=== PATIENT | female | born 1960 | race African-American/Black ===

== ENCOUNTER 2020-04-18 17:47 | Inpatient (IN) | payer MEDICARE, OTHER ==
[~2020-04-18] VITALS: Ht 162.6 cm; Wt 53.1 kg
--- NOTE | 2020-04-18 18:00 | NUR ---
[facility] for L hip/LLE pain. xray taken shows L hip fx. Patient a/ox4, breathing even and unlabored, LLE shows shortening and external rotation. Kept comfortable. Changed into a gown.
[2020-04-18 18:23] LABS: BASOPHILS # (AUTO) 0.1 /CMM (0.0-0.2); BASOPHILS % (AUTO) 0.7 % (0.0-2.0); HEMATOCRIT 33 % (33-45); HEMOGLOBIN 10.5 g/dL (11.5-14.8); LYMPHOCYTES % (AUTO) 35.7 % (20.0-44.0); MEAN CORPUSCULAR HGB CONC 32 g/dl (31.0-36.0); MEAN CORPUSCULAR VOLUME 95 fL (82-100); MONOCYTES # (AUTO) 0.9 /CMM (0.1-1.30); MONOCYTES % (AUTO) 10.8 % (2.0-12.0); NEUTROPHILS # (AUTO) 4.4 /CMM (1.8-8.9); NEUTROPHILS % (AUTO) 51.8 % (43.0-81.0); PLATELET COUNT (AUTO) 492 /CMM (150-450); RED BLOOD CELL COUNT(AUTO) 3.47 MIL/uL (4.0-5.2); WHITE BLOOD COUNT (AUTO) 8.4 K/uL (4.3-11.0)
--- NOTE | 2020-04-18 18:35 | NUR ---
ADMISSION PACKET TURNED IN. MD TO MD IN PROGRESS.
[2020-04-18 18:38] LABS: CALCIUM, SERUM 8.8 mg/dL (8.5-10.1); CREATININE 0.8 mg/dL (0.6-1.3); POTASSIUM 3.6 mmol/L (3.5-5.1)
[2020-04-18 18:43] LABS: ALBUMIN 2.4 g/dL (3.4-5.0); BILIRUBIN,DIRECT 0.1 mg/dL (0.0-0.2); BILIRUBIN,TOTAL 0.1 mg/dL (0.2-1.0); TOTAL PROTEIN, SERUM 7.8 g/dL (6.4-8.2)
[2020-04-18] MEDS ORDERED: MAGNESIUM HYDROXIDE 30 ML UDC PO PRN (19:00)
[2020-04-18] MEDS ORDERED: ONDANSETRON HCL/PF 4 MG/2 ML VIAL IVP PRN (19:00)
[2020-04-18] MEDS ORDERED: MAG HYDROX/AL HYDROX/SIMETH 30 ML UDC PO PRN (19:00)
[2020-04-18] MEDS ORDERED: ACETAMINOPHEN 325 MG TABLET PO PRN (19:00)
[2020-04-18] MEDS ORDERED: HYDROCODONE/APAP 5/325MG TABLET PO PRN (19:00)
[2020-04-18] MEDS ORDERED: Z GUARD REMEDY 2 OZ OINT TP PRN (19:00)
--- NOTE | 2020-04-18 19:06 | NUR ---
CALLED DR. DIAL [facility]. WAITING FOR CALLBACK.
--- NOTE | 2020-04-18 19:07 | NUR ---
COVID SWAB SENT TO LAB.
--- NOTE | 2020-04-18 19:13 | NUR ---
CALLED FOR COVID SWAB
--- NOTE | 2020-04-18 19:21 | NUR ---
CALLED [facility] AGAIN. WAITING FOR CALL BACK.
[2020-04-18] MEDS ORDERED: MORPHINE SULFATE INJ 2 MG/ML DISP.SYRIN IV ONE (19:30)
--- NOTE | 2020-04-18 19:30 | NUR ---
DR. STEVENS SPEAKING WITH DR. DIAL
[2020-04-18] MEDS ORDERED: MORPHINE SULFATE INJ 2 MG/ML DISP.SYRIN ONE (19:53)
--- NOTE | 2020-04-18 20:57 | NUR ---
[facility] NO [facility]ER. WILL FOLLOW UP
--- NOTE | 2020-04-18 22:46 | NUR ---
BED ASSIGNMENT 312-2
--- NOTE | 2020-04-18 23:00 | NUR ---
REPORT GIVEN TO KELVIN BATRES FOR DAV.
--- NOTE | 2020-04-18 23:51 | NUR ---
PATIENT TAKEN UP TO ASSIGN ROOM FOR DAV.
--- NOTE | 2020-04-18 23:55 | NUR ---
RN NOTES PATIENT RECIEVED
--- NOTE | 2020-04-19 00:39 | NUR ---
RN OPENING NOTES PT RECEIVED BEDSIDE. PT CALM, COOPERATIVE. ALERT AND ORIENTED X4. SPEAKS BURUNDIAN. PT ON ROOM AIR. TOLERATING WELL. NO COMPLAINTS. NO PAIN, NO SIGNS OF DISTRESS. VITAL SIGNS: 114/84, PULSE 75, RESP. 18, SPO2 98%. R HAND #20. INTACT, PATENT, FLUSHING WELL. NO OCCLUSIONS. NO INFILTRATION. WENT OVER BELONGING CHECKLIST. PT STATED HAVE NOT RECEIVED FLU/ PNEUMOCOCCAL VACCINE. PT STATE INTERESTED TO RECEIVE BEFORE DISCHARGE. PT NOTIFIED OF NPO STATUS BY MIDNIGHT ORDERED BY DR. DIAL. WILL CONTINUE TO MONITOR.
[2020-04-19 01:31] VITALS: BP 109/83
--- NOTE | 2020-04-19 04:29 | NUR ---
RN NOTE MORPHINE PER OKAY TO GIVE MORPHINE IV 2MG. ADMIN @0425. WILL REASSESS.
[2020-04-19] MEDS ORDERED: MORPHINE SULFATE INJ 2 MG/ML DISP.SYRIN IV PRN (04:30)
[2020-04-19 06:20] LABS: BASOPHILS % (AUTO) 0.4 % (0.0-2.0); EOSINOPHILS % (AUTO) 1.9 % (0.0-6.0); HEMATOCRIT 30 % (33-45); HEMOGLOBIN 9.8 g/dL (11.5-14.8); LYMPHOCYTES # (AUTO) 2.6 /CMM (0.8-4.8); LYMPHOCYTES % (AUTO) 39.8 % (20.0-44.0); MEAN CORPUSCULAR HGB CONC 33 g/dl (31.0-36.0); MEAN CORPUSCULAR VOLUME 93 fL (82-100); MONOCYTES # (AUTO) 0.8 /CMM (0.1-1.30); MONOCYTES % (AUTO) 12.5 % (2.0-12.0); NEUTROPHILS % (AUTO) 45.4 % (43.0-81.0); PLATELET COUNT (AUTO) 455 /CMM (150-450); RED BLOOD CELL COUNT(AUTO) 3.19 MIL/uL (4.0-5.2); WHITE BLOOD COUNT (AUTO) 6.5 K/uL (4.3-11.0)
--- NOTE | 2020-04-19 07:06 | NUR ---
RN CLOSING NOTES PT ENDORSED BEDSIDE. PT CALM, COOPERATIVE. ALERT AND ORIENTED X4. SPEAKS LITHUANIAN. PT ON ROOM AIR. TOLERATING WELL. PT COMPLAINED OF LOWER BODY PAIN.ADMINISTERED MORPHINE 2MG ONCE. GAVE HOT PACKS THROUGHOUT SHIFT TO EASE LEG PAIN. LEFT HAND #20. INTACT, PATENT, FLUSHING WELL. NO OCCLUSIONS. NO INFILTRATION. WILL ENDORSE TO UPCOMING SHIFT. WILL CONTINUE TO MONITOR.
[2020-04-19 07:07] LABS: CALCIUM, SERUM 8.7 mg/dL (8.5-10.1); CREATININE 0.7 mg/dL (0.6-1.3); MAGNESIUM 2.1 mg/dL (1.8-2.4); PHOSPHORUS 5.6 mg/dL (2.5-4.9); POTASSIUM 4.5 mmol/L (3.5-5.1)
--- NOTE | 2020-04-19 07:10 | NUR ---
MS RN OPENING NOTES RECEIVED PT IN BED. A/O X 4. NO SOB NOTED. IN NO APPARENT DISTRESS. ON NPO. IV SITE L HAND #20 G. SAFETY MEASURES MAINTAINED. BED IN LOWEST POSITION, BRAKES LOCKED. SIDE RAILS UP X2. CALL LIGHT WITHIN REACH. WILL CONTINUE PLAN OF CARE.
[2020-04-19 08:00] VITALS: BP 113/64
[2020-04-19] MEDS ORDERED: HALO2TAB2 PO (10:13)
--- NOTE | 2020-04-19 15:15 | NUR ---
MS RN NOTES GOT A CALL FROM [facility]. L HIP IM RODDING WILL BE DONE TOMORROW. MD BERNARD DAN IS MADE AWARE, CHANGED HIS DIET TO REGULAR AND WILL KEEP HIM ON NPO BY MIDNIGHT.
--- NOTE | 2020-04-19 16:34 | NUR ---
MS RN NOTES CONSENT SIGNED FOR LEFT HIP IM RODDING.
--- NOTE | 2020-04-19 19:24 | NUR ---
MS RN CLOSING NOTES PT RESTING IN BED COMFORTABLY. A/O X 4. NO SOB NOTED. IN NO APPARENT DISTRESS. REGULAR DIET AND WILL BE ON NPO BY MIDNIGHT. IV SITE L HAND #20 G. SAFETY MEASURES MAINTAINED. BED IN LOWEST POSITION, BRAKES LOCKED. SIDE RAILS UP X2. CALL LIGHT WITHIN REACH. WILL ENDORSE TO ELECTRONICS TESTER FOR DAV.
[2020-04-19] MEDS ORDERED: METO25TA6 PO (20:37)
[2020-04-19] MEDS ORDERED: ACET325T53 MC (20:37)
[2020-04-19] MEDS ORDERED: RIVA10TA PO (20:37)
[2020-04-19] MEDS ORDERED: LORA-259 PO (20:37)
[2020-04-19] MEDS ORDERED: HALO5TAB PO (20:37)
[2020-04-19] MEDS ORDERED: TEMA15CA5 PO (20:37)
[2020-04-19] MEDS ORDERED: DIVA250T4 PO (20:37)
[2020-04-19] MEDS ORDERED: HALO10TA13 PO (20:37)
[2020-04-19] MEDS ORDERED: DOCU-141 PO (20:37)
[2020-04-19] MEDS ORDERED: CALC355O18 PO (20:37)
--- NOTE | 2020-04-20 07:02 | NUR ---
MS/TELE/RN PATIENT IS AWAKE, ALERT, ORIENTED, COMFORTABLE, NO C/O PAIN, NO DISTRESS NOTED, NPO POST MIDNIGHT, ALL NEEDS ATTENDED AT THIS TIME, WILL CONTINUE TO MONITOR.
[2020-04-20] MEDS ORDERED: BUPIVACAINE 0.25% 75 MG/30 ML VIAL ONE (08:43)
[2020-04-20] MEDS ORDERED: LIDOCAINE 0.5% HCL 50 ML VIAL ONE (08:43)
[2020-04-20] MEDS ORDERED: BACITRACIN 50000 UNITS/VIAL ONE (08:43)
[2020-04-20] MEDS ORDERED: BUPIVACAINE 0.5 % PF 150 MG/30 ML VIAL ONE (08:43)
[2020-04-20 09:43] VITALS: BP 114/58
[2020-04-20] MEDS ORDERED: ANESTHESIA TRAY IN PYXIS 1 EA TRAY MC ONE (09:53)
[2020-04-20] MEDS ORDERED: FENTANYL PF 100MCG/2ML AMPUL ONE ×2 (10:52→12:10)
[2020-04-20] MEDS ORDERED: VANCOMYCIN 1 GM VIAL ONE (11:06)
[2020-04-20] MEDS: MORPHINE SULFATE INJ 2 MG/ML DISP.SYRIN IV PRN ×2 (15:51→23:45)
[2020-04-20 16:15] VITALS: BP 114/87
[2020-04-20] MEDS: ANCEF 1 GM/50 ML D5W IV SCH ×2 (17:16)
--- NOTE | 2020-04-20 19:29 | NUR ---
END OF SHIFT SUMMARY PT IN BED. A/O X 4. NO SOB NOTED. IN NO APPARENT DISTRESS. IV SITE L AC #22 G. BROUGHT DOWN TO THE OR FOR LEFT HIP IM RODDING ACCOMPANIED BY GABE @ 8790. WAS BROUGHT BACK TO HER ROOM @9735. POST VS BP 119/85 NE 110 RR 18 TEMP 38.2 SAO2 100%. ON REGULAR DIET. ROUTINE MEDS WERE GIVEN ORDERED. SAFETY MEASURES MAINTAINED. BED IN LOWEST POSITION, BRAKES LOCKED. SIDE RAILS UP X2. CALL LIGHT WITHIN REACH. WILL ENDORSE TO ACCOUNTING MANAGER CPA FOR DAV.
--- NOTE | 2020-04-20 19:30 | NUR ---
MS/RN OPENING NOTES RECEIVED PATIENT RESTING IN BED. PATIENT IS ALERT AND ORIENTED X 2-3. PATIENTS BREATHING IS EVEN AND UNLABORED. NO SIGNS OF SOB OR RESPIRATORY DISTRESS NOTED. PATIENT HAS IV ACCESS ON LEFT AC #22G INTACT. SAFETY MEASURES ARE IN PLACE, BED IS LOCKED AND PLACED IN THE LOWEST POSITION. CALL LIGHT IS WITHIN REACH, SIDE RAILS UP X 2. WILL CONTINUE TO MONITOR THROUGH OUT SHIFT.
[2020-04-20 20:00] VITALS: BP 138/62
[2020-04-20] MEDS ORDERED: IV PREMIX D5 1/2NS + KCL 1,000 ML IV ONE (21:00)
[2020-04-20] MEDS: IV D5/0.45 NACL W/20 MEQ KCL 1L IV PRN ×2 (22:44)
[2020-04-21] MEDS: ANCEF 1 GM/50 ML D5W IV SCH ×4 (02:01→10:39)
[2020-04-21] MEDS: MORPHINE SULFATE INJ 2 MG/ML DISP.SYRIN IV PRN ×2 (03:14→10:40)
--- NOTE | 2020-04-21 03:15 | NUR ---
TELE/RN NOTES PATIENT COMPLAINING OF PAIN AT SURGICAL SITE. PATIENT GIVEN MORPHINE 2MG IVP. WILL CONTINUE TO MONITOR.
[2020-04-21 06:51] LABS: BASOPHILS % (AUTO) 0.3 % (0.0-2.0); EOSINOPHILS % (AUTO) 0.3 % (0.0-6.0); HEMATOCRIT 27 % (33-45); HEMOGLOBIN 8.9 g/dL (11.5-14.8); LYMPHOCYTES # (AUTO) 2.2 /CMM (0.8-4.8); LYMPHOCYTES % (AUTO) 32.3 % (20.0-44.0); MEAN CORPUSCULAR HGB CONC 33 g/dl (31.0-36.0); MEAN CORPUSCULAR VOLUME 93 fL (82-100); MONOCYTES # (AUTO) 0.8 /CMM (0.1-1.30); MONOCYTES % (AUTO) 12.6 % (2.0-12.0); NEUTROPHILS # (AUTO) 3.6 /CMM (1.8-8.9); NEUTROPHILS % (AUTO) 54.5 % (43.0-81.0); PLATELET COUNT (AUTO) 428 /CMM (150-450); WHITE BLOOD COUNT (AUTO) 6.7 K/uL (4.3-11.0)
--- NOTE | 2020-04-21 06:55 | NUR ---
MS/RN CLOSING NOTES PATIENT RESTING IN SLEEPING IN BED EASY TO AROUSE. PATIENT IS ALERT AND ORIENTED X 2-3. PATIENTS BREATHING IS EVEN AND UNLABORED. NO SIGNS OF SOB OR RESPIRATORY DISTRESS NOTED. PATIENT HAS IV ACCESS ON LEFT AC #22G INTACT. PATIENT SURGICAL DRESSING INTACT MILD BLOOD LOSS. SAFETY MEASURES ARE IN PLACE, BED IS LOCKED AND PLACED IN THE LOWEST POSITION. CALL LIGHT IS WITHIN REACH, SIDE RAILS UP X 2. WILL ENDORSE CARE TO DAY SHIFT NURSE.
--- NOTE | 2020-04-21 07:10 | NUR ---
MS RN OPENING NOTES PATIENT RECEIVED IN BED. A/O X3-4. AFEBRILE. NO SOB NOTED. IN NO APPARENT DISTRESS. L AC #22, INTACT, D5 1/2 NS K+ RUNNING @75 ML/HR. SAFETY MEASURES MAINTAINED. BED IN LOWEST POSITION, BRAKES LOCKED. SIDE RAILS UP X2. CALL LIGHT WITHIN REACH. WILL CONTINUE PLAN OF CARE.
[2020-04-21 07:39] LABS: CALCIUM, SERUM 8.7 mg/dL (8.5-10.1); CREATININE 0.7 mg/dL (0.6-1.3); POTASSIUM 4.4 mmol/L (3.5-5.1)
[2020-04-21 09:13] VITALS: BP 97/69
--- NOTE | 2020-04-21 10:40 | NUR ---
MS RN NOTES PATIENT IN PAIN 10/28. MORPHINE IV PRN GIVEN.
[2020-04-21] MEDS ORDERED: LORAZEPAM 1 MG TABLET PO PRN (13:30)
[2020-04-21] MEDS ORDERED: Medication Not On Formulary EA (Calcium Carb/Mag Hydrox/Simeth (Mylanta Tonight 800-270- PO SCH (13:30)
[2020-04-21 15:56] VITALS: BP 120/76
[2020-04-21] MEDS: DIVALPROEX SODIUM 250 MG TABLET.DR PO SCH (16:51)
[2020-04-21] MEDS: HALOPERIDOL 5 MG TABLET PO SCH ×2 (16:51→22:00)
[2020-04-21] MEDS: DOCUSATE SODIUM 100 MG CAPSULE PO SCH (16:51)
[2020-04-21] MEDS: HALOPERIDOL 1 MG TABLET PO SCH (16:51)
[2020-04-21] MEDS: METOPROLOL TARTRATE 25 MG TABLET PO SCH (16:52)
[2020-04-21] MEDS: RIVAROXABAN 10 MG TABLET PO SCH (17:14)
--- NOTE | 2020-04-21 18:33 | NUR ---
MS RN CLOSING NOTES PATIENT RECEIVED IN BED. A/O X3-4. NO SOB NOTED. NO S/S OF RESPIRATORY DISTRESS. L AC #22, INTACT, D5 1/2 NS K+ RUNNING @75 ML/HR. ABLE TO MAKE NEEDS KNOWN. ROUTINE MEDS WERE GIVEN ORDERED. SAFETY MEASURES MAINTAINED. BED IN LOWEST POSITION, BRAKES LOCKED. SIDE RAILS UP X2. CALL LIGHT WITHIN REACH. WILL ENDORSE TO ADOBE DEVELOPER FOR DAV.
--- NOTE | 2020-04-21 19:15 | NUR ---
MS BATRES CLOSING NOTES PATIENT RECEIVED IN BED. A/O X3-4. NO SOB NOTED. NO S/S OF RESPIRATORY DISTRESS. LAC #22, INTACT, D5 1/2 NS K+ RUNNING @75 ML/HR. ABLE TO MAKE NEEDS KNOWN. DENIES PAIN OR DISCOMFORT AT THIS TIME. SAFETY MEASURES MAINTAINED. BED IN LOWEST POSITION, BRAKES LOCKED. SIDE RAILS UP X2. CALL LIGHT WITHIN REACH. WILL CONTINUE TO MONITOR. Addendum: 04/22/20 at 0703 by SANDEEP WASHINGTON RN OPENING NOTES
[2020-04-21 20:00] VITALS: BP 83/58
[2020-04-21] MEDS ORDERED: TEMAZEPAM 15 MG CAPSULE PO PRN (22:00)
[2020-04-21 22:41] VITALS: BP 99/49
--- NOTE | 2020-04-21 22:44 | NUR ---
MS RN NOTES: SCHEDULED HALDOL DOSE FOR TONIGHT HELD DUE TO DECREASED BLOOD PRESSURE 83/59. WILL CONTINUE TO MONITOR.
[2020-04-22] MEDS: IV D5/0.45 NACL W/20 MEQ KCL 1L IV PRN ×2 (00:27)
[2020-04-22] MEDS: HYDROCODONE/APAP 10/325MG TABLET PO PRN ×2 (02:09→06:16)
--- NOTE | 2020-04-22 07:02 | NUR ---
MS RN CLOSING NOTES PATIENT IN BED RESTING COMFORTABLY. A/O X3-4. NO SOB NOTED. NO S/S OF RESPIRATORY DISTRESS. LAC #22, INTACT, D5 1/2 NS K+ RUNNING @75 ML/HR. ABLE TO MAKE NEEDS KNOWN. DENIES PAIN OR DISCOMFORT AT THIS TIME. SAFETY MEASURES MAINTAINED. BED IN LOWEST POSITION, BRAKES LOCKED. SIDE RAILS UP X2. CALL LIGHT WITHIN REACH. WILL ENDORSE TO AM SHIFT FOR CONTINUITY OF CARE.
--- NOTE | 2020-04-22 07:10 | NUR ---
MS RN OPENING NOTES PATIENT RECEIVED IN BED, AWAKE. A/O X3-4. NO SOB NOTED. IN NO APPARENT DISTRESS. ON ROOM AIR. IV ACCESS ON L AC #22, INTACT AND PATENT, D5 1/2 NS K+ RUNNING @75 ML/HR. SAFETY MEASURES MAINTAINED. BED IN LOWEST POSITION, BRAKES LOCKED. SIDE RAILS UP X2. CALL LIGHT WITHIN REACH. WILL CONTINUE POC.
[2020-04-22 08:00] VITALS: BP 91/50
[2020-04-22] MEDS: HALOPERIDOL 1 MG TABLET PO SCH ×2 (08:24→16:54)
[2020-04-22] MEDS: DOCUSATE SODIUM 100 MG CAPSULE PO SCH ×2 (08:24→16:54)
[2020-04-22] MEDS: METOPROLOL TARTRATE 25 MG TABLET PO SCH ×2 (08:26→16:54)
[2020-04-22] MEDS: HALOPERIDOL 5 MG TABLET PO SCH ×4 (08:26→22:25)
[2020-04-22] MEDS: DIVALPROEX SODIUM 250 MG TABLET.DR PO SCH ×3 (08:26→16:54)
[2020-04-22] MEDS: RIVAROXABAN 10 MG TABLET PO SCH (17:29)
--- NOTE | 2020-04-22 18:37 | NUR ---
MS RN CLOSING NOTES PATIENT RECEIVED IN BED, AWAKE. A/O X3-4. NO SOB NOTED. NO S/S OF RESPIRATORY DISTRESS. ON ROOM AIR. IV ACCESS ON L AC #22, INTACT AND PATENT. ABLE TO MAKE NEEDS KNOWN. ROUTINE MEDS WERE GIVEN ORDERED. SAFETY MEASURES MAINTAINED. BED IN LOWEST POSITION, BRAKES LOCKED. SIDE RAILS UP X2. CALL LIGHT WITHIN REACH. WILL ENDORSE TO FIELD TRAFFIC INVESTIGATOR FOR DAV.
--- NOTE | 2020-04-22 19:15 | NUR ---
RN opening notes Pt is resting in bed comfortably. Pt is alert and orientedX3. Respiration is normal in room air. No SOB. No S/S of distress noted. IV site at LAC# 22 is clean, intact and flushes well. Safety precautions is maintained. Bed at low position, brakes locked, side rails upX2 and call light is within reach. Will continue to monitor.
[2020-04-22 20:00] VITALS: BP 96/59
--- NOTE | 2020-04-22 22:28 | NUR ---
RN notes Pt refused haldol 5 mg/2 tabs/po. Explained risks and benefits. Pt keep refusing. Pt stated "You take it!!" Will continue to monitor. Open only 1 tab and returned 1 tab back to tommie.
[2020-04-23] MEDS: HYDROCODONE/APAP 10/325MG TABLET PO PRN (04:54)
--- NOTE | 2020-04-23 04:54 | NUR ---
RN notes Pt is complaining of pain on L hip 7/10 on pain scale and requesting pain meds. Administered norco 10/1 tab/po/prn as ordered for pain. Safety precautions is maintained. Will continue to monitor.
--- NOTE | 2020-04-23 06:36 | NUR ---
RN closing notes Pt is resting in bed comfortably. Pt is alert and orientedX3. Respiration is normal in room air. No SOB. No S/S of distress noted. IV site at LAC# 22 is clean, intact and flushes well, SL. Kept Pt clean, dry and comfortable. All needs met and attended. Safety precautions is maintained. Bed at low position, brakes locked, side rails upX2 and call light is within reach. Will endorse to morning nurse for DAV.
--- NOTE | 2020-04-23 07:15 | NUR ---
MS RN OPENING NOTES PATIENT IN BED, AWAKE. A/O X3. NO SOB NOTED. NO S/S OF RESPIRATORY DISTRESS. ON ROOM AIR. IV ACCESS ON L AC #22 SL, INTACT AND PATENT. SAFETY MEASURES MAINTAINED. BED IN LOWEST POSITION, BRAKES LOCKED. SIDE RAILS UP X2. CALL LIGHT WITHIN REACH. WILL CONTINUE PLAN OF CARE.
[2020-04-23 08:00] VITALS: BP 98/53
[2020-04-23] MEDS: DIVALPROEX SODIUM 250 MG TABLET.DR PO SCH ×4 (08:19→17:00)
[2020-04-23] MEDS: HALOPERIDOL 1 MG TABLET PO SCH ×3 (08:19→17:00)
[2020-04-23] MEDS: METOPROLOL TARTRATE 25 MG TABLET PO SCH ×2 (08:19→17:00)
[2020-04-23] MEDS: DOCUSATE SODIUM 100 MG CAPSULE PO SCH ×2 (08:19→17:36)
[2020-04-23] MEDS: HALOPERIDOL 5 MG TABLET PO SCH ×4 (08:19→22:00)
[2020-04-23] MEDS ORDERED: Hydrocodone/Apap 10/325MG PO (11:50)
[2020-04-23 16:00] VITALS: BP 104/59
[2020-04-23] MEDS: RIVAROXABAN 10 MG TABLET PO SCH (18:00)
--- NOTE | 2020-04-23 19:30 | NUR ---
MS RN OPENING NOTE RECEIVED PATIENT IN BED. A/OX2. TOLERATING ROOM AIR. RESPIRATIONS ARE EVEN AND UNLABORED. NO S/S RESP DISTRESS. NO /O PAIN. REQUESTING SNACKS. IN NO APPARENT DISTRESS. IV ACCESS IN LAC#22 PATENT AND SALINE LOCKED. BED IS LOW AND LOCKED, HOB ELEVATED IN HIGH ROSEN, SIDE RIALS UP X3, CALL LIGHT WITHIN REACH. BED ALARM ON. WILL CONTINUE TO MONITOR THROUGHOUT SHIFT.
[2020-04-23 20:00] VITALS: BP 113/59
--- NOTE | 2020-04-23 20:45 | NUR ---
MS RN CLOSING NOTES PATIENT IN BED, AWAKE. A/O X2-3. CONFUSED AT TIMES. NO SOB NOTED. NO S/S OF RESPIRATORY DISTRESS. ON ROOM AIR, SATURATING >98%. IV ACCESS ON L AC #22, INTACT AND PATENT. ABLE TO MAKE NEEDS KNOWN. ROUTINE MEDS WERE GIVEN ORDERED. SAFETY MEASURES MAINTAINED. BED IN LOWEST POSITION, BRAKES LOCKED. SIDE RAILS UP X2. CALL LIGHT WITHIN REACH. WILL ENDORSE TO GLASS MELT OPERATOR FOR DAV.
--- NOTE | 2020-04-24 07:31 | NUR ---
MS RN CLOSING NOTE PATIENT RESTING IN BED. A/OX2. TOLERATING ROOM AIR. NO RESP DISTRESS. PATIENT DID COMPLAIN OFF PAIN LAST NIGHT TO [facility]. WHEN I WENT IN TO ASK HER SHE STATED SHE WAS NOT IN PAIN. NO DISTRESS. IV ACCESS MAINTAINED IN LAC#22. BED REMAINS LOW AND LOCKED, HOB ELEVATED IN HIGH ROSEN, SIDE RIALS UP X3, CALL LIGHT WITHIN REACH. BED ALARM ON. WILL ENDORSE TO NEXT SHIFT.
[2020-04-24 08:00] VITALS: BP 108/62
[2020-04-24] MEDS: DOCUSATE SODIUM 100 MG CAPSULE PO SCH ×2 (13:36→16:10)
[2020-04-24] MEDS: HALOPERIDOL 5 MG TABLET PO SCH ×3 (13:36→22:47)
[2020-04-24] MEDS: DIVALPROEX SODIUM 250 MG TABLET.DR PO SCH ×3 (13:37→16:09)
[2020-04-24] MEDS: METOPROLOL TARTRATE 25 MG TABLET PO SCH ×2 (13:38→16:10)
[2020-04-24] MEDS: HALOPERIDOL 1 MG TABLET PO SCH ×2 (13:39→16:10)
[2020-04-24 16:00] VITALS: BP 108/68
[2020-04-24] MEDS: RIVAROXABAN 10 MG TABLET PO SCH (16:16)
--- NOTE | 2020-04-24 18:00 | NUR ---
Patient without changes in condition throughout shift. VSS, afebrile. CM continues to look for SNF placement. Needs met at this time. Will endorse to night nurse.
--- NOTE | 2020-04-24 19:30 | NUR ---
MS/RN OPENING NOTE RECEIVED PATIENT SLEEPING IN BED. ALERT AND ORIENTED X 2-3. ABLE TO MAKE NEEDS KNOWN. NO SIGNS OR SYMPTOMS OF PAIN AT THIS TIME. IV ACCESS TO LEFT AC INTACT AND PATENT. CONTINUES ON ROOM AIR WITH NO SIGNS OR SYMPTOMS OF RESPIRATORY DISTRESS NOTED. CALL LIGHT WITHIN REACH. ASPIRATION, FALL AND SAFETY PRECAUTIONS MAINTAINED. WILL CONTINUE TO MONITOR.
[2020-04-24 20:00] VITALS: BP 94/60
[2020-04-25] VITALS: BP 94/60
--- NOTE | 2020-04-25 06:56 | NUR ---
MS/RN CLOSING NOTE PATIENT CURRENTLY SLEEPING IN BED. ALERT AND ORIENTED X 3. ABLE TO MAKE NEEDS KNOWN. NO COMPLAINTS OF PAIN THIS SHIFT. IV ACCESS TO LEFT AC #22G INTACT AND PATENT. CONTINUES ON ROOM AIR WITH NO SIGNS OR SYMPTOMS OF RESPIRATORY DISTRESS NOTED. CALL LIGHT WITHIN REACH. ASPIRATION, FALL AND SAFETY PRECAUTIONS MAINTAINED. WILL ENDORSE PLAN OF CARE TO ONCOMING SHIFT.
--- NOTE | 2020-04-25 07:49 | NUR ---
RN Opening note Received patient in bed, confuse, awaken able to responds all stimuli, Pt does no c/o pain or distress. Skin is warm to touch keep clean/dry intact IV site, respiratory even and unlabored on room air O2sat 97%. Kept locked bed with elevated HOB for aspiration precaution and ensure airway and lowest bed foe safety. Call light within reach, will continue to monitor.
[2020-04-25 08:17] VITALS: BP 118/66
[2020-04-25] MEDS: DOCUSATE SODIUM 100 MG CAPSULE PO SCH ×2 (08:17→17:00)
[2020-04-25] MEDS: HALOPERIDOL 1 MG TABLET PO SCH ×2 (08:18→17:27)
[2020-04-25] MEDS: HALOPERIDOL 5 MG TABLET PO SCH ×2 (08:18→17:26)
[2020-04-25] MEDS: DIVALPROEX SODIUM 250 MG TABLET.DR PO SCH ×3 (08:18→17:27)
[2020-04-25] MEDS: METOPROLOL TARTRATE 25 MG TABLET PO SCH ×2 (08:18→17:00)
--- NOTE | 2020-04-25 12:21 | NUR ---
Patient d/c to [facility], given report Katt/GAVI.
[2020-04-25] MEDS: HYDROCODONE/APAP 10/325MG TABLET PO PRN (15:16)
[2020-04-25 16:45] VITALS: BP 97/48
--- NOTE | 2020-04-25 18:42 | NUR ---
2EMTs picked up patient to [facility]. Patient in stable condition, picture taken on s/p left hip fx surgery.
== END 2020-04-25 18:38 | DRG 480 ==
LOC: ER 17:53 → TRANSITION 20:22 → MED 22:57
PROVIDERS: ADMIT Internal Medicine; ATTEND Internal Medicine
PROC: 0QS706Z Reposition Left Upper Femur with Intramedullary Internal Fixation Device, Open Approach (ICD-10-PCS; principal; 2020-04-20)
DX: S72.142A Displaced intertrochanteric fracture of left femur, initial encounter for closed fracture (principal); E43 Unspecified severe protein-calorie malnutrition; W18.30XA Fall on same level, unspecified, initial encounter; F25.9 Schizoaffective disorder, unspecified; I10 Essential (primary) hypertension; J44.9 Chronic obstructive pulmonary disease, unspecified; F31.9 Bipolar disorder, unspecified; Z20.822 Contact with and (suspected) exposure to COVID-19; E88.09 Other disorders of plasma-protein metabolism, not elsewhere classified; Y93.9 Activity, unspecified; Y92.89 Other specified places as the place of occurrence of the external cause; D50.0 Iron deficiency anemia secondary to blood loss (chronic); Z68.20 Body mass index [BMI] 20.0-20.9, adult
CPT/HCPCS: 36415; 71045-TC; 73020; 73502; 80048-TC; 80076-TC; 83735-TC; 84100-TC; 84484-TC; 85025-TC; 85730-TC; 86850-TC; 87081-TC; 97110-TC; 97112-TC; 97116-TC; 97530-TC; A6209; C1713; C9803; G0378; J0690; J2270; J2405; J3010; J3370; J3480; J3490; J7060; U0003

== ENCOUNTER 2020-12-15 18:00 | Inpatient (IN) | payer MEDICARE, OTHER ==
[~2020-12-15] VITALS: Ht 170.2 cm; Wt 75.3 kg
[~2020-12-15 18:00] MED LIST: ACET325T53 PO; CALC355O18 PO; DIVA250T4 PO; DOCU-141 PO; HALO10TA13 PO; HALO2TAB2 PO; HALO5TAB PO; Hydrocodone/Apap 10/325MG PO; LORA-259 PO; METO25TA6 PO; RIVA10TA PO; TEMA15CA5 PO
--- NOTE | 2020-12-15 18:03 | NUR ---
DR FREED AT THE BEDSIDE
--- NOTE | 2020-12-15 18:07 | NUR ---
The patient garett, from snf, c/o Left hip pain x 3 weeks, hx surgery. Rates pain 7/10. No apparent deformity noted. Denies numbness/tinhling in the extremity. Will continue to monitor the patient.
[2020-12-15] MEDS ORDERED: MORPHINE SULFATE INJ 2 MG/ML DISP.SYRIN ONE (18:23)
[2020-12-15] MEDS ORDERED: MORPHINE SULFATE INJ 2 MG/ML DISP.SYRIN IM ONE (18:30)
--- NOTE | 2020-12-15 18:55 | NUR ---
covid swab done and sent to the lab
[2020-12-15] MEDS ORDERED: MAG30ORA PO (18:57)
[2020-12-15] MEDS ORDERED: HYDR-3980 PO (18:57)
[2020-12-15] MEDS ORDERED: BISA10SU11 RC (18:57)
[2020-12-15] MEDS ORDERED: LORA10TA7 PO (18:57)
[2020-12-15] MEDS ORDERED: ACET-868 PO (18:57)
[2020-12-15] MEDS ORDERED: BENZ1TAB7 PO (18:57)
[2020-12-15] MEDS ORDERED: NA P133E RC (18:57)
[2020-12-15] MEDS ORDERED: MAGN400O6 PO (18:57)
--- NOTE | 2020-12-15 19:12 | NUR ---
blood specimen collected and sent to the lab
[2020-12-15 19:17] LABS: BASOPHILS # (AUTO) 0.1 K/uL (0.0-0.2); BASOPHILS % (AUTO) 0.8 % (0.0-2.0); EOSINOPHILS % (AUTO) 0.4 % (0.0-6.0); HEMATOCRIT 41 % (33-45); HEMOGLOBIN 13.9 g/dL (11.5-14.8); LYMPHOCYTES # (AUTO) 2.7 K/uL (0.8-4.8); LYMPHOCYTES % (AUTO) 41.9 % (20.0-44.0); MEAN CORPUSCULAR HGB CONC 34 g/dl (31.0-36.0); MEAN CORPUSCULAR VOLUME 100 fL (82-100); MONOCYTES # (AUTO) 0.7 K/uL (0.1-1.30); NEUTROPHILS # (AUTO) 3.1 K/uL (1.8-8.9); NEUTROPHILS % (AUTO) 46.9 % (43.0-81.0); PLATELET COUNT (AUTO) 271 K/uL (150-450); RED BLOOD CELL COUNT(AUTO) 4.12 MIL/uL (4.0-5.2); WHITE BLOOD COUNT (AUTO) 6.5 K/uL (4.3-11.0)
--- NOTE | 2020-12-15 19:27 | NUR ---
report given to nurse Jim
--- NOTE | 2020-12-15 20:15 | NUR ---
PAGED DR DIAL FOR CONSULT ON PT. AWAITING A CALL BACK
--- NOTE | 2020-12-15 20:32 | NUR ---
PT PROVIDED WITH WARM BLANKETS FOR COMFORT.
--- NOTE | 2020-12-15 20:33 | NUR ---
ORTHO AND PA CONSULTING NOW.
[2020-12-15 20:42] LABS: CREATININE 0.8 mg/dL (0.6-1.3); POTASSIUM 4.7 mmol/L (3.5-5.1)
--- NOTE | 2020-12-15 20:51 | NUR ---
PAGED [employer] FOR MD CONSULT. AWAITING A CALL BACK.
[2020-12-15] MEDS ORDERED: ACETAMINOPHEN 325 MG TABLET PO PRN ×2 (21:30)
[2020-12-15] MEDS ORDERED: TEMAZEPAM 15 MG CAPSULE PO PRN (21:30)
[2020-12-15] MEDS ORDERED: MAG HYDROX/AL HYDROX/SIMETH 30 ML UDC PO PRN ×2 (21:30)
[2020-12-15] MEDS ORDERED: Z GUARD REMEDY 2 OZ OINT TP PRN (21:30)
[2020-12-15] MEDS ORDERED: MAGNESIUM HYDROXIDE 30 ML UDC PO PRN (21:30)
[2020-12-15] MEDS ORDERED: NA PHOS,M-B/NA PHOS,DI-BA 1 EA ENEMA RC PRN (21:30)
[2020-12-15] MEDS ORDERED: BISACODYL SUPP (10 MG) 10 MG/SUPP.RECT SUPP.RECT RC PRN (21:30)
--- NOTE | 2020-12-15 22:39 | NUR ---
MS 113-1
--- NOTE | 2020-12-15 23:19 | NUR ---
REPORT GIVEN TO BRANDO
--- NOTE | 2020-12-15 23:19 | NUR ---
RN NOTE REPORT RECEIVED FROM GISEL GONZALEZ FOR DAV.
--- NOTE | 2020-12-15 23:40 | NUR ---
RN NOTE PT BROUGHT TO UNIT VIA GURNEY. PT IS A/OX3-4. CURRENTLY ON ROOM AIR SHOWING NO S/S OF RESP DISTRESS/SOB. SKIN INTACT. PT ON CARDIAC DIET. IV ACCESS ON RIGHT HAND #22 FLUSHED, PATENT, AND INTACT WITH NO INFILTRATION. BED ALARM ON. BED LOCKED AND IN LOWEST POSITION. CALL LIGHT WITHIN REACH. WILL CONTINUE TO MONITOR AND ASSESS FOR ANY CHANGES THROUGHOUT SHIFT.
[2020-12-15 23:50] VITALS: BP 112/62
[2020-12-15] MEDS: IV NS 0.9% 1,000 ML IV PRN (23:55)
[2020-12-16] MEDS: HYDROMORPHONE INJ 2 MG/ML DISP.SYRIN IV PRN ×2 (02:05→17:34)
--- NOTE | 2020-12-16 03:20 | NUR ---
RN NOTE COVID SPECIMEN COLLECTED AND SENT TO LAB.
[2020-12-16 04:00] VITALS: BP 105/74
[2020-12-16 06:39] LABS: BASOPHILS % (AUTO) 0.3 % (0.0-2.0); EOSINOPHILS % (AUTO) 0.9 % (0.0-6.0); HEMATOCRIT 37 % (33-45); HEMOGLOBIN 12.6 g/dL (11.5-14.8); LYMPHOCYTES # (AUTO) 2.7 K/uL (0.8-4.8); LYMPHOCYTES % (AUTO) 53.8 % (20.0-44.0); MEAN CORPUSCULAR HGB CONC 34 g/dl (31.0-36.0); MEAN CORPUSCULAR VOLUME 100 fL (82-100); MONOCYTES # (AUTO) 0.6 K/uL (0.1-1.30); NEUTROPHILS # (AUTO) 1.7 K/uL (1.8-8.9); PLATELET COUNT (AUTO) 241 K/uL (150-450); RED BLOOD CELL COUNT(AUTO) 3.73 MIL/uL (4.0-5.2); WHITE BLOOD COUNT (AUTO) 5.1 K/uL (4.3-11.0)
[2020-12-16 07:04] LABS: ALBUMIN 2.7 g/dL (3.4-5.0); BILIRUBIN,DIRECT 0.1 mg/dL (0.0-0.2); BILIRUBIN,TOTAL 0.2 mg/dL (0.2-1.0); CALCIUM, SERUM 8.1 mg/dL (8.5-10.1); CREATININE 0.6 mg/dL (0.6-1.3); PHOSPHORUS 4.4 mg/dL (2.5-4.9); POTASSIUM 4.2 mmol/L (3.5-5.1); TOTAL PROTEIN, SERUM 7.6 g/dL (6.4-8.2)
--- NOTE | 2020-12-16 07:34 | NUR ---
RN NOTE NO CHANGES IN PT CONDITION DURING SHIFT. PT IS A/OX3-4. CURRENTLY ON ROOM AIR SHOWING NO S/S OF RESP DISTRESS/SOB. SKIN INTACT. IV ACCESS ON RIGHT HAND #22 FLUSHED, PATENT, AND INTACT WITH NO INFILTRATION INFUSING 0.9% NS AT 75 ML/HR. ALL DUE MEDS GIVEN ORDERED. PT KEPT CLEAN AND COMFORTABLE. ALL SAFETY MEASURES IMPLEMENTED. CALL LIGHT WITHIN REACH. BED ALARM ON. BED LOCKED AND IN LOWEST POSITION. WILL ENDORSE TO MORNING SHIFT RN FOR DAV.
--- NOTE | 2020-12-16 08:00 | NUR ---
MS RN NOTE PATIENT IN BED , ALL NEEDS ATTENDED, ON RA NO SOB NOTED, RT HAND HL INTACT AND FLUSHED WELL ,ON IVF ORDERED , BED IN LOWEST AND LOCKED POSITION , CALL LIGHT WITHIN REACH , WILL MONITOR
[2020-12-16] MEDS: PANTOPRAZOLE 40 MG TABLET.DR PO SCH (08:07)
[2020-12-16] MEDS: METOPROLOL TARTRATE 25 MG TABLET PO SCH ×2 (08:08→16:14)
[2020-12-16] MEDS: LORATADINE 10 MG TABLET PO SCH (08:08)
[2020-12-16] MEDS: DIVALPROEX SODIUM 250 MG TABLET.DR PO SCH ×3 (08:08→16:14)
[2020-12-16] MEDS: BENZTROPINE MESYLATE (1 MG) 1 MG TABLET PO SCH ×2 (08:08→16:14)
[2020-12-16] MEDS: DOCUSATE SODIUM 100 MG CAPSULE PO SCH ×2 (08:10→16:14)
[2020-12-16] MEDS: HALOPERIDOL 5 MG TABLET PO SCH ×3 (08:12→21:45)
[2020-12-16] MEDS: HYDROCODONE/APAP 10/325MG TABLET PO PRN ×2 (09:50→21:46)
--- NOTE | 2020-12-16 09:51 | NUR ---
ms rn note norco po given for pain bp110/78 ,saturation 96%
[2020-12-16 12:44] VITALS: BP 110/53
--- NOTE | 2020-12-16 13:00 | NUR ---
ms rn note dr Armando orthopedic doctor at bedside wants to surgery lt hip , patient need to be clear for surgery. called to cara Tomas informed about this
--- NOTE | 2020-12-16 13:44 | NUR ---
ms rn note dr lennon boiler house mechanic cleared patient for surgery, called to dr Armando office, left a message
[2020-12-16] MEDS: ACETAMINOPHEN 325 MG TABLET PO PRN (14:39)
[2020-12-16] MEDS: IV NS 0.9% 1,000 ML IV PRN (14:39)
--- NOTE | 2020-12-16 14:44 | NUR ---
MS RN NOTE TYLENOL FOR PAIN LT HIP GIVEN ,CONT ON IVF ORDERED
--- NOTE | 2020-12-16 15:06 | NUR ---
MS RN NOTE LEFT A MESSAGE FOR DR DIAL ON HIS CELL ABOUT PATIENT THAT BEING CLEARED FOR SURGERY WILL ,AWAIT FOR RETURN CALL
[2020-12-16 16:00] VITALS: BP 121/76
[2020-12-16] MEDS ORDERED: MORPHINE SULFATE INJ 2 MG/ML DISP.SYRIN IV PRN (17:30)
--- NOTE | 2020-12-16 17:38 | NUR ---
registered nurse cardiac telemetry note c\o severe pain 9\10 lt hip, Dilaudid 1 mg ivp given bp 121/78, saturation 98%
--- NOTE | 2020-12-16 18:11 | NUR ---
MS RNNOTE FEELS BETTER AFTER DILAUDID GIVEN ,2D ECHO DOING NOW ORDERED
--- NOTE | 2020-12-16 18:59 | NUR ---
MS RN NOTE ALL NEEDS ATTENDED, CONT ON IVF ORDERED ,NO SOB NOTED ,WILL CONT TO MONITOR ,WILL BE NPO AFTER MIDNIGHT FOR SURGERY
--- NOTE | 2020-12-16 19:41 | NUR ---
RN NOTE PATIENT ALERT AND RESPONSIVE. ORIENTED X3-4. ABLE TO MAKE NEEDS KNOWN. ON ROOM AIR, O2 SAT 100%. RESPIRATIONS EVEN AND UNLABORED. WITH RIGHT HAND #22, PATENT AND INTACT RUNNING NS @ 75ML/HR. NO SIGNS OF INFILTRATION. DENIES ANY PAIN AT THIS TIME. NPO AT MIDNIGHT FOR SURGERY IN AM. BED LOCKED AND IN LOWEST POSITION. CALL LIGHT WITHIN REACH. ALL NEEDS ANTICIPATED.
[2020-12-16 20:00] VITALS: BP 119/69
[2020-12-17] MEDS: HYDROMORPHONE INJ 2 MG/ML DISP.SYRIN IV PRN ×3 (01:37→23:23)
[2020-12-17 04:00] VITALS: BP 117/70
[2020-12-17] MEDS: IV NS 0.9% 1,000 ML IV PRN (04:08)
[2020-12-17 06:30] LABS: BASOPHILS % (AUTO) 0.4 % (0.0-2.0); EOSINOPHILS % (AUTO) 0.4 % (0.0-6.0); HEMATOCRIT 38 % (33-45); HEMOGLOBIN 12.6 g/dL (11.5-14.8); LYMPHOCYTES # (AUTO) 2.2 K/uL (0.8-4.8); LYMPHOCYTES % (AUTO) 49.3 % (20.0-44.0); MEAN CORPUSCULAR HGB CONC 33 g/dl (31.0-36.0); MEAN CORPUSCULAR VOLUME 100 fL (82-100); MONOCYTES # (AUTO) 0.3 K/uL (0.1-1.30); MONOCYTES % (AUTO) 7.3 % (2.0-12.0); NEUTROPHILS # (AUTO) 1.9 K/uL (1.8-8.9); NEUTROPHILS % (AUTO) 42.6 % (43.0-81.0); PLATELET COUNT (AUTO) 232 K/uL (150-450); RED BLOOD CELL COUNT(AUTO) 3.79 MIL/uL (4.0-5.2); WHITE BLOOD COUNT (AUTO) 4.5 K/uL (4.3-11.0)
[2020-12-17 06:42] LABS: CALCIUM, SERUM 8.4 mg/dL (8.5-10.1); CREATININE 0.7 mg/dL (0.6-1.3); POTASSIUM 4.3 mmol/L (3.5-5.1)
--- NOTE | 2020-12-17 06:45 | NUR ---
RN NOTE PATIENT ORIENTED X3-4. ON ROOM AIR, O2 SAT 100%. WITH RIGHT HAND #22, PATENT AND INTACT RUNNING NS @ 75ML/HR. NO SIGNS OF INFILTRATION. PAIN RELIEVED BY PRN PAIN MEDS THROUGH OUT THE NIGHT. REMAINS NPO SINCE MIDNIGHT. BED LOCKED AND IN LOWEST POSITION. CALL LIGHT WITHIN REACH. WILL ENDORSE TO AM SHIFT.
--- NOTE | 2020-12-17 07:27 | NUR ---
RN OPENING NOTE PATIENT IN BED, ON RA WITH NO SIGNS OF LABORED BREATHING. PATIENT A&O X3-4, NPO AT THIS TIME. R HAND 22G IN PLACE RUNNING NS AT 75 ML/HR. BED LOCKED AND IN LOW POSITION, CALL LIGHT WITHIN REACH. ALL SAFETY MEASURES IMPLEMENTED.
[2020-12-17] MEDS: PANTOPRAZOLE 40 MG TABLET.DR PO SCH (07:30)
[2020-12-17] MEDS: HALOPERIDOL 5 MG TABLET PO SCH ×3 (08:00→22:21)
[2020-12-17] MEDS: DIVALPROEX SODIUM 250 MG TABLET.DR PO SCH ×3 (08:00→17:00)
[2020-12-17] MEDS: DOCUSATE SODIUM 100 MG CAPSULE PO SCH ×2 (08:00→17:00)
[2020-12-17] MEDS: LORATADINE 10 MG TABLET PO SCH (08:00)
[2020-12-17] MEDS: BENZTROPINE MESYLATE (1 MG) 1 MG TABLET PO SCH ×2 (08:00→17:00)
[2020-12-17] MEDS: METOPROLOL TARTRATE 25 MG TABLET PO SCH ×2 (08:01→17:00)
[2020-12-17] MEDS ORDERED: ANESTHESIA TRAY IN PYXIS 1 EA TRAY MC ONE (08:05)
[2020-12-17] MEDS ORDERED: POLYMYXIN B SULFATE 500,000 UNITS ONE (08:05)
[2020-12-17] MEDS ORDERED: BUPIVACAINE 0.5 % PF 150 MG/30 ML VIAL ONE (08:05)
[2020-12-17] MEDS ORDERED: MIDAZOLAM HCL 2 MG/2ML VIAL ONE (08:57)
[2020-12-17] MEDS ORDERED: SUCCINYLCHOLINE CHLORIDE 20 MG/ML VIAL ONE (08:57)
[2020-12-17] MEDS ORDERED: ROCURONIUM BROMIDE 50 MG/5 ML ONE (08:57)
[2020-12-17] MEDS ORDERED: FENTANYL PF 100MCG/2ML AMPUL ONE ×2 (08:58→12:36)
[2020-12-17] MEDS ORDERED: HYDROMORPHONE INJ 2 MG/ML DISP.SYRIN ONE (08:58)
[2020-12-17] MEDS ORDERED: SEVOFLURANE 250 ML BOTTLE IH ONE (09:02)
[2020-12-17] MEDS ORDERED: VANCOMYCIN 1 GM VIAL ONE (11:33)
[2020-12-17] MEDS ORDERED: ALBUTEROL 17GM INHALER ONE (11:35)
[2020-12-17] MEDS ORDERED: hydrALAZINE HCL IV 20 MG VIAL ONE (12:32)
[2020-12-17] MEDS ORDERED: LABETALOL HCL IV 100MG VIAL ONE (12:40)
[2020-12-17] MEDS ORDERED: MORPHINE SULFATE INJ 4 MG/ML DISP.SYRIN IV PRN (14:30)
[2020-12-17 16:04] VITALS: BP 122/80
[2020-12-17] MEDS: ANCEF 1 GM/50 ML D5W IV SCH ×2 (17:08→20:45)
--- NOTE | 2020-12-17 17:40 | NUR ---
RN NOTE NOTED SATURATION ON PATIENT'S LEFT HIP DRESSING FROM PROCEDURE EARLIER TODAY. DRESSING REINFORCED. DR. GUZMAN NOTIFIED. WILL CONTINUE TO MONITOR.
[2020-12-17] MEDS: HYDROCODONE/APAP 10/325MG TABLET PO PRN (18:38)
--- NOTE | 2020-12-17 18:45 | NUR ---
RN CLOSING NOTE PATIENT IN BED, AWAKE. ON ROOM AIR WITH NO SIGNS OF LABORED BREATHING. R HAND IV PATENT AND RUNNING NS AT 75ML/HR. ALL NEEDS ATTENDED THROUGHOUT SHIFT. BED LOCKED AND IN LOWEST POSITION, CALL LIGHT WITHIN REACH. ALL SAFETY MEASURES IMPLEMENTED. WILL ENDORSE TO RANGELAND MANAGEMENT SPECIALIST NURSE.
--- NOTE | 2020-12-17 19:30 | NUR ---
RN NOTE RECEIVED PATIENT ON R/O COVID ISOLATION . PATIENT IN BED. A/OX3. TOLERATING ROOM AIR. RESPIRATIONS ARE EVEN AND UNLABORED. NO S/S SOB NOTED. C/O PAIN IN LEFT HIP. PROVIDED EDUCATION ON ABDUCTOR PILLOW AND YOON CATHETER D/T PATIENT REQUEST TO REMOVE. ASSESSED WITH PREVIOUS RN LLUVIA THE PATIENTS INCISION SITE THAT HAS BEEN REINFORCED WITH ABD PAD, NO SATURATION ON THE REINFORCED LAYER. IV ACCESS IN RIGHT HAND #22 RUNNING 20MEQ KCL D5 1/2NS @75ML/HR. LEFT HAND SL. BED IS LOW AND LOCKED, HOB ELEVATED IN SEMI FOWLERS, SIDE RIAL SUP X2, BOSSMAN LIGHT WITHIN REACH. WILL CONTINUE TO MONITOR THROUGHOUT SHIFT.
[2020-12-17 20:00] VITALS: BP 111/74
--- NOTE | 2020-12-17 20:18 | NUR ---
RN NOTE INFORMED ELECT[employer]IC NEWS GATHERING [employer] PERSON ANTON PULLIAM DNP THAT PATIENT IS S/P LEFT HIP SURGERY AND HAS BLEED THROUGH DRESSING, IT HAS BEEN REINFORCED WITH NO BLEED THRU BUT THERE IS A CBC ORDERED NOW THAT PATIENT IS REFUSING, CURRENT H/H IS 12.6/38. ANTON PULLIAM STATED OK TO RECHECK CBC IN AM.
[2020-12-17] MEDS: ACETAMINOPHEN 325 MG TABLET PO PRN (20:51)
[2020-12-17] MEDS: Potassium Chloride 20 MEQ in IV D5/0.45 NACL 1,000 ML IV PRN (20:53)
[2020-12-18] VITALS (11 sets, daily range): BP systolic 87–123; BP diastolic 53–80
[2020-12-18] MEDS: HYDROCODONE/APAP 10/325MG TABLET PO PRN ×2 (04:01→21:48)
[2020-12-18] MEDS: Potassium Chloride 20 MEQ in IV D5/0.45 NACL 1,000 ML IV PRN (05:09)
--- NOTE | 2020-12-18 06:20 | NUR ---
RN NOTE R/O COVID ISOLATION . RESTING IN BED. A/OX3. REMAINS TOLERATING ROOM AIR. NO RESP DISTRESS. MANAGED PAIN WITH NORCO AND DILAUDID. DRESSING DID NOT SATURATE THRU THE REINFORCED LAYER. IV IN RIGHT HAND #22 RUNNING 20MEQ KCL D5 1/2NS @75ML/HR. LEFT HAND SL. BED IS LOW AND LOCKED, HOB ELEVATED IN SEMI FOWLERS, SIDE RIALS UP X2, BOSSMAN LIGHT WITHIN REACH. WILL ENDORSE TO ONCOMING SHIFT.
[2020-12-18 06:44] LABS: EOSINOPHILS % (AUTO) 0.3 % (0.0-6.0); MONOCYTES # (AUTO) 0.5 K/uL (0.1-1.30)
[2020-12-18 07:31] LABS: BASOPHILS % (AUTO) 0.3 % (0.0-2.0); HEMATOCRIT 21 % (33-45); HEMOGLOBIN 7.2 g/dL (11.5-14.8); LYMPHOCYTES # (AUTO) 2.3 K/uL (0.8-4.8); LYMPHOCYTES % (AUTO) 46.5 % (20.0-44.0); MEAN CORPUSCULAR HGB CONC 34 g/dl (31.0-36.0); MEAN CORPUSCULAR VOLUME 100 fL (82-100); MONOCYTES % (AUTO) 9.6 % (2.0-12.0); NEUTROPHILS # (AUTO) 2.2 K/uL (1.8-8.9); NEUTROPHILS % (AUTO) 43.3 % (43.0-81.0); PLATELET COUNT (AUTO) 181 K/uL (150-450); RED BLOOD CELL COUNT(AUTO) 2.13 MIL/uL (4.0-5.2)
[2020-12-18] MEDS: ASPIRIN 325 MG TABLET PO SCH (08:11)
[2020-12-18] MEDS: DOCUSATE SODIUM 100 MG CAPSULE PO SCH ×2 (08:11→18:24)
[2020-12-18] MEDS: PANTOPRAZOLE 40 MG TABLET.DR PO SCH (08:11)
[2020-12-18] MEDS: HALOPERIDOL 5 MG TABLET PO SCH ×3 (08:12→21:51)
[2020-12-18] MEDS: DIVALPROEX SODIUM 250 MG TABLET.DR PO SCH ×3 (08:12→18:24)
[2020-12-18] MEDS: METOPROLOL TARTRATE 25 MG TABLET PO SCH ×2 (08:12→18:24)
[2020-12-18] MEDS: LORATADINE 10 MG TABLET PO SCH (08:12)
[2020-12-18] MEDS: BENZTROPINE MESYLATE (1 MG) 1 MG TABLET PO SCH ×2 (08:12→18:23)
[2020-12-18] MEDS: HYDROMORPHONE INJ 2 MG/ML DISP.SYRIN IV PRN ×2 (10:06→15:05)
[2020-12-18] MEDS: ACETAMINOPHEN 325 MG TABLET PO PRN (10:38)
--- NOTE | 2020-12-18 11:00 | NUR ---
RN NOTE PT PRE-BLOOD TRANSFUSION VITAL SIGNS OF BLOOD PRESSURE 87/56 AFTER METOPROLOL AND TEMP 100.0. DR. GUZMAN NOTIFIED FOR PERMISSION TO CONTINUE BLOOD TRANSFUSION
--- NOTE | 2020-12-18 11:47 | NUR ---
RN NOTE 15 MINUTE POST BLOOD TRANSFUSION WITHOUT ANY ADVERSE REACTIONS. PATIENTS TEMP 99.0 AND BLOOD PRESSURE 89/57
[2020-12-18] MEDS: SOD FERRIC GLUC 125 MG in IV NS 0.9% 100 ML IV SCH (15:05)
[2020-12-19] MEDS: HYDROMORPHONE INJ 2 MG/ML DISP.SYRIN IV PRN (01:06)
[2020-12-19 04:00] VITALS: BP 106/67
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
[2020-12-19] MEDS: HYDROCODONE/APAP 10/325MG TABLET PO PRN ×3 (06:49→21:30)
--- NOTE | 2020-12-19 06:52 | NUR ---
RN NOTE PATIENT COMPLAINED OF LEFT LEG PAIN, RATING OF 9/10. ASSISTED WITH TURNING AND REPOSITIONING WITH NO RELIEF. ADMINISTERED NORCO 10-325 ORDERED. WILL CONTINUE TO MONITOR.
--- NOTE | 2020-12-19 07:30 | NUR ---
RN OPENING NOTES PT IN BED RESTING. A/OX3. REMAINS TOLERATING ROOM AIR. NO RESP DISTRESS. DRESSING DRY AND INTACT. IV IN RIGHT HAND #22 RUNNING 20MEQ KCL D5 1/2NS @75ML/HR. LEFT HAND SL. BED IS LOW AND LOCKED, HOB ELEVATED IN SEMI FOWLERS, SIDE RIALS UP X2, BOSSMAN LIGHT WITHIN REACH. WILL CONTINUE TO MONITOR
[2020-12-19] MEDS: LORATADINE 10 MG TABLET PO SCH (08:11)
[2020-12-19] MEDS: METOPROLOL TARTRATE 25 MG TABLET PO SCH ×2 (08:11→16:02)
[2020-12-19] MEDS: PANTOPRAZOLE 40 MG TABLET.DR PO SCH (08:11)
[2020-12-19] MEDS: BENZTROPINE MESYLATE (1 MG) 1 MG TABLET PO SCH ×2 (08:11→16:07)
[2020-12-19] MEDS: ASPIRIN 325 MG TABLET PO SCH (08:12)
[2020-12-19] MEDS: DIVALPROEX SODIUM 250 MG TABLET.DR PO SCH ×3 (08:12→16:07)
[2020-12-19] MEDS: HALOPERIDOL 5 MG TABLET PO SCH ×3 (08:12→21:29)
[2020-12-19] MEDS: DOCUSATE SODIUM 100 MG CAPSULE PO SCH ×2 (08:12→16:07)
[2020-12-19 11:27] LABS: BASOPHILS % (AUTO) 0.2 % (0.0-2.0); EOSINOPHILS % (AUTO) 0.3 % (0.0-6.0); HEMATOCRIT 27 % (33-45); HEMOGLOBIN 9.1 g/dL (11.5-14.8); LYMPHOCYTES # (AUTO) 2.6 K/uL (0.8-4.8); LYMPHOCYTES % (AUTO) 32.9 % (20.0-44.0); MEAN CORPUSCULAR HGB CONC 34 g/dl (31.0-36.0); MEAN CORPUSCULAR VOLUME 96 fL (82-100); MONOCYTES # (AUTO) 0.8 K/uL (0.1-1.30); MONOCYTES % (AUTO) 10.7 % (2.0-12.0); NEUTROPHILS # (AUTO) 4.3 K/uL (1.8-8.9); NEUTROPHILS % (AUTO) 55.9 % (43.0-81.0); PLATELET COUNT (AUTO) 145 K/uL (150-450); RED BLOOD CELL COUNT(AUTO) 2.78 MIL/uL (4.0-5.2); WHITE BLOOD COUNT (AUTO) 7.8 K/uL (4.3-11.0)
[2020-12-19 12:16] LABS: ALBUMIN 1.8 g/dL (3.4-5.0); BILIRUBIN,TOTAL 0.3 mg/dL (0.2-1.0); CALCIUM, SERUM 7.4 mg/dL (8.5-10.1); CREATININE 0.8 mg/dL (0.6-1.3); MAGNESIUM 2.1 mg/dL (1.8-2.4); PHOSPHORUS 3.5 mg/dL (2.5-4.9); POTASSIUM 4.5 mmol/L (3.5-5.1); TOTAL PROTEIN, SERUM 5.6 g/dL (6.4-8.2)
[2020-12-19] MEDS: ENOXAPARIN SODIUM 40 MG/0.4 ML DISP.SYRIN SQ SCH (13:30)
[2020-12-19] MEDS: SOD FERRIC GLUC 125 MG in IV NS 0.9% 100 ML IV SCH (14:47)
--- NOTE | 2020-12-19 15:32 | NUR ---
RN NOTES PT LEFT HAND IV CAME OFF BY ACCIDENT STATED BY PT. CLEAN DRESSING APPLIED.
--- NOTE | 2020-12-19 16:01 | NUR ---
RN NOTES - WITHHOLD LOPRESSOR PT BP 103/72. LOPRESSOR PO WITHHELD.
[2020-12-19 17:07] VITALS: BP 103/72
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
--- NOTE | 2020-12-19 19:30 | NUR ---
RN OPENING NOTES: RECEIVED PT A/OX3-4 IN NO S/SX OF ACUTE DISTRESS AT THIS TIME. NO SOB NOTED. PATIENT'S BREATHING IS EVEN AND UNLABORED. PATIENT IS ON ROOM AIR; TOLERATING WELL WITH 02 SAT OF >95 AT THE TIME OF RECEIVED.PATIENT ON REGULAR DIET; TOLERATES WELL. NOTED IV SITE ON R HAND #22 ; PATENT, INTACT AND FLUSHING WELL; NO S/S OF INFECTION OR INFILTRATION. WITH SX WOUND DRESSING @ L HIP; DRESSING NOTED TO BE DRY, SECURED AND INTACT. YOON CATH IN PLACE, MODERATE URINE OUTPUT NOTED. SAFETY MEASURES HAVE BEEN PROVIDED AND IMPLEMENTED. PATIENT BED ALARM IS ON. HEAD OF BED ELEVATED. BED IS LOCKED, IN LOWEST POSITION AND SIDE RAILS UP. CALL LIGHT WITHIN REACH OF THE PATIENT. APPLICABLE ISOLATION PRECAUTIONS IN PLACE. WILL CONTINUE TO MONITOR AND REASSESS FOR ANY CHANGES AND WILL CARRY OUT ANY ONGOING AND ACTIVE MD ORDER.
[2020-12-19 20:00] VITALS: BP 103/53
--- NOTE | 2020-12-19 20:05 | NUR ---
RN NOTES NOTED PT'S TEMP IS AT 99.8@2000; COOLING MEASURES RENDERED. HOME HEALTH RN MADE AWARE. WILL CONTINUE TO MONITOR AND ASSESS THROUGHOUT THE SHIFT.
[2020-12-20] MEDS: HYDROMORPHONE INJ 2 MG/ML DISP.SYRIN IV PRN (03:03)
[2020-12-20 04:00] VITALS: BP 96/49
--- NOTE | 2020-12-20 04:15 | NUR ---
RN NOTES NO NOTED CHANGES IN PATIENT CONDITION AT THIS TIME; PATIENT VITALS STABLE, NO SIGNS OF ACUTE RESPIRATORY DISTRESS. AM PATIENT CARE RENDERED. WILL CONTINUE TO MONITOR AND REASSESS FOR ANY CHANGES THROUGHOUT THE SHIFT.
--- NOTE | 2020-12-20 06:51 | NUR ---
RN CLOSING NOTE: PATIENT REMAINS IN ROOM IN NO SIGNS OF RESPIRATORY DISTRESS, PATIENT STILL ON ROOM AIR;TOLERATING WELL SATURATING @ >95% SP02. SAFETY MEASURES IMPLEMENTED, BED IN LOWEST POSITION, LOCKED, SIDE RAILS UP, CALL LIGHT WITHIN REACH. ALL NEEDS AND ORDERS ADDRESSED DURING THE SHIFT. IV ACCESS MAINTAINED INTACT, SECURED AND FLUSHING WELL. ALL DUE MEDS GIVEN ORDERED & SCHEDULED ; PATIENT TOLERATED WELL. PATIENT KEPT CLEAN AND COMFORTABLE WITHIN THE SHIFT. PATIENT ENDORSED TO INCOMING SHIFT RN WITH STABLE VITAL SIGN AND FOR CONTINUITY OF CARE.
[2020-12-20 07:04] LABS: BASOPHILS % (AUTO) 0.2 % (0.0-2.0); EOSINOPHILS % (AUTO) 0.7 % (0.0-6.0); HEMATOCRIT 24 % (33-45); HEMOGLOBIN 8.3 g/dL (11.5-14.8); LYMPHOCYTES # (AUTO) 2.5 K/uL (0.8-4.8); LYMPHOCYTES % (AUTO) 37.7 % (20.0-44.0); MEAN CORPUSCULAR HGB CONC 34 g/dl (31.0-36.0); MEAN CORPUSCULAR VOLUME 96 fL (82-100); MONOCYTES # (AUTO) 0.6 K/uL (0.1-1.30); MONOCYTES % (AUTO) 9.8 % (2.0-12.0); NEUTROPHILS # (AUTO) 3.4 K/uL (1.8-8.9); NEUTROPHILS % (AUTO) 51.6 % (43.0-81.0); PLATELET COUNT (AUTO) 144 K/uL (150-450); RED BLOOD CELL COUNT(AUTO) 2.53 MIL/uL (4.0-5.2); WHITE BLOOD COUNT (AUTO) 6.6 K/uL (4.3-11.0)
[2020-12-20 07:31] LABS: CALCIUM, SERUM 7.7 mg/dL (8.5-10.1); CREATININE 0.6 mg/dL (0.6-1.3); PHOSPHORUS 3.9 mg/dL (2.5-4.9)
[2020-12-20 08:00] VITALS: BP 116/56
--- NOTE | 2020-12-20 08:10 | NUR ---
RN Note: Pt received alert awake oriented X 2 with episodes of forgetfulness & confusion. On RA no breathing distress noted. Safety measures observed. Left hip surgical site dressing clean & dry. No bleeding and drainage noted. Pt c/o pain 08/28. Will administer tylenol for pain. F/C intact, draining well with gravity. Encourage pt to use call light for assistance. Call light within reach.
[2020-12-20] MEDS: ENOXAPARIN SODIUM 40 MG/0.4 ML DISP.SYRIN SQ SCH (08:15)
[2020-12-20] MEDS: LORATADINE 10 MG TABLET PO SCH (08:16)
[2020-12-20] MEDS: ASPIRIN 325 MG TABLET PO SCH (08:16)
[2020-12-20] MEDS: HALOPERIDOL 5 MG TABLET PO SCH ×3 (08:16→22:21)
[2020-12-20] MEDS: BENZTROPINE MESYLATE (1 MG) 1 MG TABLET PO SCH ×2 (08:16→16:45)
[2020-12-20] MEDS: DIVALPROEX SODIUM 250 MG TABLET.DR PO SCH ×3 (08:16→16:45)
[2020-12-20] MEDS: DOCUSATE SODIUM 100 MG CAPSULE PO SCH ×2 (08:16→16:46)
[2020-12-20] MEDS: ACETAMINOPHEN 325 MG TABLET PO PRN ×2 (08:17→20:28)
[2020-12-20] MEDS: PANTOPRAZOLE 40 MG TABLET.DR PO SCH (08:17)
[2020-12-20] MEDS: METOPROLOL TARTRATE 25 MG TABLET PO SCH ×2 (08:17→16:45)
[2020-12-20] MEDS: HYDROCODONE/APAP 10/325MG TABLET PO PRN ×2 (10:27→23:13)
--- NOTE | 2020-12-20 12:54 | NUR ---
RN Note: Noted pt pulled out IV catheter. Refused to insert new IV line. R/B discussed with pt, still strictly refusing. Informed Kris HOLGUIN that pt has no IV line & Ferrlicit IV due at 1400. No new orders at this time. Will continue to monitor.
[2020-12-20] MEDS: SOD FERRIC GLUC 125 MG in IV NS 0.9% 100 ML IV SCH (14:00)
[2020-12-20 16:00] VITALS: BP 123/47
--- NOTE | 2020-12-20 19:30 | NUR ---
MS RN OPENING NOTES PATIENT AWAKE IN BED, ALERT/ORIENTED X 2, PT ABLE TO MAKE NEEDS KNOWN. PT DENIES PAIN AT THIS TIME. PT STABLE ON RA, NO S/S OF DISTRESS OR SOB NOTED, BREATHING EVEN AND UNLABORED. PT HAS NO IV ACCESS DUE TO PULLING IT OUT EARLIER AND REFUSING TO HAVE A NEW IV INSERTED, PER DAY SHIFT NURSE, IS AWARE. LEFT HIP DRESSING CLEAN, DRY AND INTACT. YOON CATH INTACT AND DRAINING WELL. SAFETY MEASURES IN PLACE: CALL LIGHT WITHIN REACH, SIDE RAILS UP X 2, BED LOCKED IN LOW POSITION, BED ALARM ON. WILL CONTINUE TO MONITOR PATIENT
[2020-12-20 20:00] VITALS: BP 91/55
--- NOTE | 2020-12-20 20:30 | NUR ---
MS RN NOTE PATIENT HAS TEMP OF 99.1, TYLENOL 650 MG PO GIVEN ORDERED. WILL CONTINUE TO MONITOR PATIENT
--- NOTE | 2020-12-20 22:31 | NUR ---
MS RN NOTE PATIENT'S TEMP REASSESSED, NOW 98.5. WILL CONTINUE TO MONITOR PATIENT
[2020-12-20 23:25] VITALS: BP 96/54
--- NOTE | 2020-12-20 23:30 | NUR ---
MS RN NOTE REPORT GIVEN TO GISEL KENDRICK FOR TRANSFER TO ROOM 306-2. ALL MEDICATIONS GIVEN ORDERED, PT NEEDS MET THROUGHOUT SHIFT, NO SIGNIFICANT CHANGES. PT TRANSFERRED IN STABLE CONDITION
--- NOTE | 2020-12-20 23:30 | NUR ---
MS RN NOTES RECEIVED TRANSFER FROM [facility] BY BED,A/O X2-3 BREATHING NORMAL,S/P IM NAIL REMOVAL AND LEFT HIP ARTHROPLASTY BT DR UREÑA ON 12/19,DRESSING INTACT AND DRY.ABDUCTION PILLOW IN USED.NO IV ACCESS,MD AWARE.KEPT COMFORTABLE IN BED.
[2020-12-21 06:13] LABS: BASOPHILS % (AUTO) 0.2 % (0.0-2.0); EOSINOPHILS % (AUTO) 1.7 % (0.0-6.0); HEMATOCRIT 22 % (33-45); HEMOGLOBIN 7.5 g/dL (11.5-14.8); LYMPHOCYTES # (AUTO) 1.7 K/uL (0.8-4.8); LYMPHOCYTES % (AUTO) 37.1 % (20.0-44.0); MEAN CORPUSCULAR HGB CONC 34 g/dl (31.0-36.0); MEAN CORPUSCULAR VOLUME 97 fL (82-100); MONOCYTES # (AUTO) 0.5 K/uL (0.1-1.30); MONOCYTES % (AUTO) 11.7 % (2.0-12.0); NEUTROPHILS # (AUTO) 2.2 K/uL (1.8-8.9); NEUTROPHILS % (AUTO) 49.3 % (43.0-81.0); PLATELET COUNT (AUTO) 155 K/uL (150-450); WHITE BLOOD COUNT (AUTO) 4.6 K/uL (4.3-11.0)
--- NOTE | 2020-12-21 06:16 | NUR ---
MS RN NOTES NO COMPLAINTS OF SINCE SHE GOT IN HERE IN 3 WEST,SLEPT WELL,ABDUCTION PILLOW IN USED.NO IV ACCESS.WILL ENDORSE TO DAY NURSE FOR DAV.
[2020-12-21 06:19] LABS: CALCIUM, SERUM 7.5 mg/dL (8.5-10.1); CREATININE 0.8 mg/dL (0.6-1.3); MAGNESIUM 2.2 mg/dL (1.8-2.4); PHOSPHORUS 4.1 mg/dL (2.5-4.9); POTASSIUM 4.1 mmol/L (3.5-5.1)
--- NOTE | 2020-12-21 07:20 | NUR ---
MS RN OPENING NOTES RECEIVED PATIENT IN BED, ASLEEP, EASILY AWAKEN BY VERBAL AND TACTILE STIMULI. PT STABLE ON RA, NO S/S OF DISTRESS OR SOB NOTED, BREATHING EVEN AND UNLABORED. PT HAS NO IV ACCESS DUE TO PULLING IT OUT EARLIER AND REFUSING TO HAVE A NEW IV INSERTED, MD IS AWARE PER REPORT. LEFT HIP DRESSING CLEAN, DRY AND INTACT. YOON CATH INTACT AND DRAINING WELL. SAFETY MEASURES IN PLACE: CALL LIGHT WITHIN REACH, SIDE RAILS UP X 2, BED LOCKED IN LOW POSITION, BED ALARM ON. WILL CONTINUE TO MONITOR ACCORDINGLY.
[2020-12-21] MEDS: PANTOPRAZOLE 40 MG TABLET.DR PO SCH (07:35)
[2020-12-21 08:00] VITALS: BP 105/48
[2020-12-21] MEDS: HALOPERIDOL 5 MG TABLET PO SCH ×2 (08:28→16:59)
[2020-12-21] MEDS: DIVALPROEX SODIUM 250 MG TABLET.DR PO SCH ×3 (08:28→16:59)
[2020-12-21] MEDS: ASPIRIN 325 MG TABLET PO SCH (08:28)
[2020-12-21] MEDS: BENZTROPINE MESYLATE (1 MG) 1 MG TABLET PO SCH ×2 (08:29→16:59)
[2020-12-21] MEDS: DOCUSATE SODIUM 100 MG CAPSULE PO SCH ×2 (08:29→16:59)
[2020-12-21] MEDS: LORATADINE 10 MG TABLET PO SCH (08:29)
[2020-12-21] MEDS: METOPROLOL TARTRATE 25 MG TABLET PO SCH ×2 (08:31→17:00)
[2020-12-21] MEDS: HYDROCODONE/APAP 10/325MG TABLET PO PRN ×2 (08:33→16:50)
[2020-12-21] MEDS: ENOXAPARIN SODIUM 40 MG/0.4 ML DISP.SYRIN SQ SCH (08:34)
[2020-12-21] MEDS ORDERED: PANT40TA2 PO (10:41)
[2020-12-21] MEDS ORDERED: ENOX40DI SQ (10:41)
[2020-12-21] MEDS ORDERED: ASPI-992 PO (10:44)
[2020-12-21] MEDS ORDERED: SENNOSIDES/DOCUSATE SODIUM 1 TAB TABLET PO SCH (11:00)
[2020-12-21 13:58] VITALS: BP 92/56
[2020-12-21] MEDS: SOD FERRIC GLUC 125 MG in IV NS 0.9% 100 ML IV SCH (14:00)
--- NOTE | 2020-12-21 14:00 | NUR ---
RN NOTES BLOOD AVAILABLE, VS TAKEN AND RECORDED. STARTED BLOOD TRANSFUSION. PATIENT TOLERATING WELL, NO UNTOWARD S/SX NOTED. WILL CONTINUE TO MONITOR.
--- NOTE | 2020-12-21 14:13 | NUR ---
RN NOTES ONGOING BLOOD TRANSFUSION
[2020-12-21 14:18] VITALS: BP 92/58
--- NOTE | 2020-12-21 14:20 | NUR ---
RN NOTES 15 MINUTES POST START OF TRANSFUSION, NO UNTOWARD S/SX NOTED. WILL CONTINUE TO MONITOR.
[2020-12-21 14:38] VITALS: BP 98/54
[2020-12-21 16:00] VITALS: BP 93/49
--- NOTE | 2020-12-21 16:30 | NUR ---
RN NOTES BLOOD TRANSFUSION DONE, PATIENT ABLE TO TOLERATE NO UNTOWARD S/SX NOTED.
[2020-12-21 17:00] VITALS: BP 92/58
--- NOTE | 2020-12-21 18:30 | NUR ---
SYSTEMS OPERATOR NOTES DISCHARGED PATIENT IN STABLE CONDITION, VITAL SIGNS WITHIN NORMAL LIMITS. MEDICATION INSTRUCTION AND FOLLOW UP GIVEN TO RN MARTINA OF [facility] CALLED AT [phone]. BELONGINGS SIGNED AND ACCOUNTED FOR. IV ACCESS REMOVED, COVERED WITH GAUZE, NO BLEEDING NOTED. PATIENT REFUSED TO HAVE THE PICTURE OF THE SURGICAL SITE. THERE WAS NO BLEEDING NOTED, DRESSING DRY AND INTACT UPON ASSESSMENT. PATIENT WAS PICKED UP BY [employer] FROM [facility] AT 1815. LEFT UNIT IN STABLE CONDITION. CHARGE NURSE AND MD AWARE OF DISCHARGE.
== END 2020-12-21 18:40 | DRG 470 ==
LOC: ER 18:02 → MEDSG1 22:42 → MED 12-20 23:16
PROVIDERS: ADMIT Nurse Practitioner Acute Care; ATTEND Nurse Practitioner Acute Care
PROC: 0SRB06A Replacement of Left Hip Joint with Oxidized Zirconium on Polyethylene Synthetic Substitute, Uncemented, Open Approach (ICD-10-PCS; principal; 2020-12-17)
PROC: 0SPB04Z Removal of Internal Fixation Device from Left Hip Joint, Open Approach (ICD-10-PCS; 2020-12-17)
PROC: 30233N1 Transfusion of Nonautologous Red Blood Cells into Peripheral Vein, Percutaneous Approach (ICD-10-PCS; 2020-12-18)
DX: T84.091A Other mechanical complication of internal left hip prosthesis, initial encounter (principal); Y83.8 Other surgical procedures as the cause of abnormal reaction of the patient, or of later complication, without mention of misadventure at the time of the procedure; I10 Essential (primary) hypertension; J44.9 Chronic obstructive pulmonary disease, unspecified; G89.29 Other chronic pain; F20.9 Schizophrenia, unspecified; E83.51 Hypocalcemia; Z91.81 History of falling; Z20.822 Contact with and (suspected) exposure to COVID-19; Y92.129 Unspecified place in nursing home as the place of occurrence of the external cause
CPT/HCPCS: 36415; 71045-TC; 73020; 73502; 80048-TC; 80053-TC; 80061-TC; 80076-TC; 83735-TC; 84100-TC; 84484-TC; 85025-TC; 85730-TC; 86850-TC; 87081-TC; 88300-TC; 88305-TC; 88311-TC; 93307-TC; 97116-TC; 97530-TC; A4217; A6209; A6253; A6403; C1776; C9803; G0378; J0330; J0360; J0690; J1100; J1170; J1650; J2250; J2270; J2370; J2405; J2704; J2916; J3010; J3370; J3480; J3490; J7030; J7050; J7060; P9016; U0003